=== PATIENT | male | born 1995 | race African-American/Black ===

== ENCOUNTER 2019-03-18 17:00 | Emergency (ER) | payer OTHER ==
[~2019-03-18] VITALS: Ht 185.4 cm; Wt 104.3 kg
[2019-03-18] MEDS ORDERED: PROAIR HFA8.5 GM INH (17:21)
[2019-03-18] MEDS ORDERED: PREDNISONE 20 M20 M1 PO (17:24)
[2019-03-18] MEDS ORDERED: VENTOLIN HFA 1818 GM INH (17:24)
[2019-03-18 17:28] VITALS: BP 133/71
== END 2019-03-18 17:29 | disposition home or self-care (01) ==
LOC: M.ERS 17:00
DX: J45.909 Unspecified asthma, uncomplicated (principal); Z76.0 Encounter for issue of repeat prescription

== ENCOUNTER 2019-12-23 16:04 | Emergency (ER) | payer OTHER ==
[~2019-12-23] VITALS: Ht 188 cm; Wt 104.3 kg
[~2019-12-23 16:04] MED LIST: PREDNISONE 20 M20 M1 PO; PROAIR HFA8.5 GM INH; VENTOLIN HFA 1818 GM INH
[2019-12-23 16:56] LABS: ABSOLUTE BASOPHILS 0.1 thou/uL (0.0-0.2); ABSOLUTE EOSINOPHILS 0.3 thou/uL (0.0-0.7); ABSOLUTE LYMPHOCYTES 2.3 thou/uL (0.8-5.3); ABSOLUTE MONOCYTES 1.1 thou/uL (0.0-1.2); ABSOLUTE NEUTROPHILS 10.1 thou/uL (1.6-8.1); BASOPHILS 0.4 %; EOSINOPHILS 2.2 %; HEMATOCRIT 44.5 % (42.0-52.0); HEMOGLOBIN 15.4 gm/dL (14.0-18.0); LYMPHOCYTES 16.6 %; MCH 29.6 pg (26.0-34.0); MCHC 34.5 g/dL (28.0-37.0); MCV 85.5 fL (80.0-100.0); MONOCYTES 7.9 %; MPV 9.8 fl. (7.2-11.1); NUCLEATED RBCS 0 /100WBC; PLATELET COUNT* 272 thou/uL (150-400); POLYS 72.9 %; RDW-CV 14.1 % (10.5-14.5); WBC 13.9 thou/uL (4.0-11.0)
[2019-12-23 17:12] LABS: CALCIUM 9.1 mg/dL (8.5-10.1); CREATININE 1.1 mg/dL (0.6-1.3); POTASSIUM 3.3 mmol/L (3.5-5.1)
[2019-12-23 17:18] LABS: MAGNESIUM 1.9 mg/dL (1.8-2.4); TOTAL BILIRUBIN 0.7 mg/dL (<0.1-1.0); TOTAL PROTEIN 7.6 g/dL (6.4-8.2)
[2019-12-23] MEDS ORDERED: FLEXERIL PO (17:47)
[2019-12-23 18:35] LABS: URINE BILIRUBIN NEGATIVE (Negative); URINE BLOOD NEGATIVE (Negative); URINE CLARITY CLEAR; URINE COLOR YELLOW; URINE GLUCOSE-RANDOM NEGATIVE (Negative); URINE KETONES 2+ (Negative); URINE LEUKOCYTES-REFLEX NEGATIVE (Negative); URINE NITRITE-REFLEX NEGATIVE (Negative); URINE PROTEIN NEGATIVE (Negative); URINE SPECIFIC GRAVITY 1.025 (1.005-1.030); URINE UROBILINOGEN 0.2 E.U./dl (0.2-1.0)
[2019-12-23 18:50] VITALS: BP 151/88
--- NOTE | 2019-12-24 12:39 | EKG ---
[place] [address] ELECTROCARDIOGRAM REPORT Name: MARTÍN PADRON Room: [facility]#: [id number] Admission: 12/23/19 Attend Phys: Discharge: 12/23/19 Date of : [birth year] Date of Service: 12/23/19 174 Report #: [id number] THIS REPORT FOR: //name// [facility] ED Test Date: 2019-12-23 Test Time: 17:42:11 Pat Name: MARTÍN KEI HOLT Department: Room: Gender: Vp Analytics[facility] 1995 Requested By: Agatha Acevedo Order Number: [id number] MD: Finesse Arcos Measurements Intervals [place] Rate: 85 P: 61 KS: 176 QRS: 57 QRSD: 94 T: 25 QT: 351 QTc: 418 Interpretive Statements Sinus rhythm Probable left atrial enlargement No previous ECG available for comparison Electronically Signed On 12-24-2019 12:38:53 CDT by Finesse Arcos [email or web address] <ELECTRONICALLY SIGNED> By: Finesse Arcos MD, [facility] 12/24/19 1238 1742 174 Finesse Arcos MD, [facility] /EPI
== END 2019-12-23 18:50 | disposition home or self-care (01) ==
LOC: M.ERS 16:04
PROVIDERS: Nurse Practitioner Family
DX: E86.0 Dehydration (principal); E87.6 Hypokalemia; J45.909 Unspecified asthma, uncomplicated; Z79.899 Other long term (current) drug therapy

== ENCOUNTER 2020-09-07 16:53 | Emergency (ER) | payer OTHER ==
[~2020-09-07] VITALS: Ht 185.4 cm; Wt 104.3 kg
[~2020-09-07 16:53] MED LIST changes: +FLEXERIL PO
[2020-09-07] MEDS ORDERED: IPRAT-ALBUT 0.5-3 ML INH (17:56)
[2020-09-07] MEDS ORDERED: PREDNISONE 10 M10 MG PO (17:56)
[2020-09-07] MEDS ORDERED: VENTOLIN HFA 1818 GM INH (17:56)
[2020-09-07 18:11] VITALS: BP 105/78
== END 2020-09-07 18:12 | disposition home or self-care (01) ==
LOC: M.ERS 16:53
DX: J45.901 Unspecified asthma with (acute) exacerbation (principal); Z79.899 Other long term (current) drug therapy

== ENCOUNTER 2021-06-01 14:06 | Emergency (ER) | payer OTHER ==
[~2021-06-01] VITALS: Ht 182.9 cm; Wt 99.8 kg
[~2021-06-01 14:06] MED LIST changes: +IPRAT-ALBUT 0.5-3 ML INH; +PREDNISONE 10 M10 MG PO
[2021-06-01] MEDS ORDERED: VENTOLIN HFA 1818 GM INH (15:58)
[2021-06-01] MEDS ORDERED: PREDNISONE 20 M20 MG PO (15:58)
[2021-06-01 16:10] VITALS: BP 145/96
== END 2021-06-01 16:10 | disposition home or self-care (01) ==
LOC: M.ERS 14:06
DX: J45.901 Unspecified asthma with (acute) exacerbation (principal)